=== PATIENT | female | born 1975 | race Caucasian/White ===

== ENCOUNTER → 2017-07-02 | Outpatient (CLI) | payer OTHER ==
--- NOTE | 2017-07-02 22:34 | MR ---
EXAMINATION TYPE: MR brain wo con DATE OF EXAM: 07/02/2017 COMPARISON: CT brain March 22, 2016 HISTORY: Previous stroke 2016 as well as right-sided hearing loss and right-sided weakness and numbne ss with inconclusive spinal tap for multiple sclerosis all per patient. Unspecified TIA per order. TECHNIQUE: Multiplanar, multisequence images of the brain and brainstem is performed without IV contrast. [facility] linating disease protocol with additional Sagittal Flair sequence performed. FINDINGS: T2 Lesions Present : No Approximate Number of Lesions: N/A Locations Identified : N/A Size of Reference Lesion(s): N/A T1 Hypointense Lesion(s) Present: N/A Change from Prior: N/A Diffusion weighted images demonstrate no evidence of a recent infarct or other diffusion abnormality. There is no worrisome extra-axial fluid collection. The ventricular system and cisternal spaces ar e normal in size and appearance. The brain volume is age appropriate. Midline structures demonstrate normal morphology. The craniocervical junction appears within normal limits. Normal vascular flow voids are present. The visualized sinuses are clear and the globes are intact. IMPRESSION: No evidence of a recent infarct. Unremarkable study.
== END | disposition home or self-care (01) ==
LOC: RADMRIMAIN 20:48
PROVIDERS: ATTEND Psychiatry & Neurology Neurology
DX: G45.9 Transient cerebral ischemic attack, unspecified (principal); Z88.1 Allergy status to other antibiotic agents; Z91.040 Latex allergy status
CPT/HCPCS: 70551

== ENCOUNTER 2023-07-21 13:33 | Emergency (ER) | payer OTHER ==
[2023-07-21] MEDS: HYDROmorphone 1 MG/ML 1 ML SYRINGE IVP STA (13:55)
--- NOTE | 2023-07-21 13:58 | ED ---
General Adult HPI <CyrusNelda P - Last Filed: 07/21/23 19:52> - General Source: patient, RN notes reviewed Mode of arrival: wheelchair Limitations: no limitations <Karin Banks - Last Filed: 07/21/23 20:24> - General Chief complaint: Extremity Injury, Lower Stated complaint: L ankle injury Time Seen by Provider: 07/21/23 13:41 - History of Present Illness Initial comments: 48-year-old female presents to the emergency department for evaluation of left ankle injury. Patient states that she was wearing high-heeled boots on Saturday when she twisted her ankle. She states that she has not been able to walk on it. She tried to wait to see if it would get better on its own. She has been taking Motrin for the pain. She used crutches to get around today. (Karin Banks) - Related Data Home Medications Medication Instructions Recorded Confirmed Albuterol Inhaler [Ventolin 1 - 2 puff INHALATION RT-Q6H PRN 10/26/14 03/22/16 Inhaler] DULoxetine HCL [Cymbalta] 120 mg PO HS 10/26/14 03/22/16 Lurasidone [Latuda] 20 mg PO HS 10/26/14 03/22/16 Denosumab [Prolia] 60 mg SQ Q180D 08/30/15 03/22/16 Gabapentin [Gralise] 1,800 mg PO HS 08/30/15 03/22/16 Multivitamins, Thera [Multivitamin] 1 tab PO HS 08/30/15 03/22/16 ALPRAZolam [Xanax] 0.25 mg PO BID PRN 03/22/16 03/22/16 Atorvastatin [Lipitor] 40 mg PO HS 03/22/16 03/22/16 Clopidogrel [Plavix] 75 mg PO HS 03/22/16 03/22/16 HYDROcodone/APAP 7.5-325MG [[place] 1 tab PO BID PRN 03/22/16 03/22/16 7.5-325] Levothyroxine Sodium [Levoxyl] 75 mcg PO DAILY 03/22/16 03/22/16 Zonisamide [Zonegran] 200 mg PO HS 03/22/16 03/22/16 Previous Rx's Medication Instructions Recorded HYDROcodone/APAP 5-325MG [[place] 1 tab PO Q4HR PRN 3 Days #18 tab 07/21/23 5-325] Allergies Allergy/AdvReac Type Severity Reaction Status Date / Time cephalexin monohydrate Allergy Rash/Hives Verified 07/21/23 13:37 [From Keflex] latex Allergy Rash/Hives Verified 07/21/23 13:37 shellfish derived [Shellfish] Allergy Anaphylaxis Verified 07/21/23 13:37 tree nut Allergy Anaphylaxis Verified 07/21/23 13:37 Review of Systems ROS Other: All systems not noted in ROS Statement are negative. <Nelda Bridges - Last Filed: 07/21/23 19:52> ROS Other: All systems not noted in ROS Statement are negative. <Karin Banks - Last Filed: 07/21/23 20:24> ROS Statement: Those systems with pertinent positive or pertinent negative responses have been documented in the HPI. Past Medical History Past Medical History: Thyroid Disorder Additional Past Medical History / Comment(s): Hx. fibromyalgia/ hasimoto/osteoporosis/raynauds/crest/scleroderma/trigeminal neuralgia/occipital neuritis/bipolar depression/ vit b-12 deficiend and vit d dedf/spinal stenosis/ History of Any Multi-Drug Resistant Organisms: None Reported Past Surgical History: Orthopedic Surgery Additional Past Surgical History / Comment(s): fx to face surgically fixed/dilaltion and curettage/left neck lymph node bx-negtive and leep Past Anesthesia/Blood Transfusion Reactions: No Reported Reaction Past Psychological History: Anxiety, Bipolar Smoking Status: Never smoker Past Alcohol Use History: None Reported Past Drug Use History: Marijuana - Past Family History Father Family Medical History: Diabetes Mellitus, Hyperlipidemia, Hypertension Mother Additional Family Medical History / Comment(s): osteopenia Sister(s) Family Medical History: Thyroid Disorder Additional Family Medical History / Comment(s): lupus and Brother(s) Additional Family Medical History / Comment(s): depression <Karin Banks - Last Filed: 07/21/23 20:24> General Exam Limitations: no limitations General appearance: alert, in no apparent distress Head exam: Present: atraumatic, normocephalic, normal inspection Eye exam: Present: normal appearance, PERRL, EOMI. Absent: scleral icterus, conjunctival injection, periorbital swelling ENT exam: Present: normal exam, mucous membranes moist Respiratory exam: Present: normal lung sounds bilaterally. Absent: respiratory distress, wheezes, rales, rhonchi, stridor Cardiovascular Exam: Present: regular rate, normal rhythm, normal heart sounds. Absent: systolic murmur, diastolic murmur, rubs, gallop, clicks Extremities exam: Present: tenderness, normal capillary refill, pedal edema, other (DP and PT pulses 2+ ecchymosis to the medial left foot and ankle, deformity of the left ankle, normal cap refill). Absent: full ROM Neurological exam: Present: alert, oriented X3 Psychiatric exam: Present: normal affect, normal mood Skin exam: Present: warm, dry, intact, other (Ecchymosis to the left foot and ankle with significant edema, DP and PT pulses 2+). Absent: normal color <Karin Banks - Last Filed: 07/21/23 20:24> Course Vital Signs 07/21/23 07/21/23 07/21/23 13:35 15:48 16:55 Temperature 98 F Pulse Rate 97 72 68 Respiratory 20 18 18 Rate Blood Pressure 143/84 144/85 131/81 O2 Sat by Pulse 99 98 100 Oximetry 07/21/23 07/21/23 07/21/23 17:00 17:05 17:20 Temperature Pulse Rate 67 65 78 Respiratory 18 18 18 Rate Blood Pressure 102/60 110/62 125/73 O2 Sat by Pulse 99 99 99 Oximetry 07/21/23 07/21/23 07/21/23 17:35 17:50 18:05 Temperature Pulse Rate 72 63 74 Respiratory 18 18 18 Rate Blood Pressure 134/82 130/79 130/74 O2 Sat by Pulse 97 99 98 Oximetry 07/21/23 07/21/23 07/21/23 18:35 19:05 19:11 Temperature Pulse Rate 72 75 71 Respiratory 18 18 18 Rate Blood Pressure 134/84 128/84 131/72 O2 Sat by Pulse 97 97 95 Oximetry 07/21/23 19:35 Temperature Pulse Rate 56 L Respiratory 14 Rate Blood Pressure 124/71 O2 Sat by Pulse 99 Oximetry Procedures - Procedural Sedation *Procedural Sedation Start Time: 16:55 *Procedural Sedation Stop Time: 17:20 *Risks,benefits, and alternative therapies discussed?: Yes *Patient indicates understanding of risk/benefit discussion?: Yes *Indications: fracture/dislocation reduction *Previous Adverse Reaction to Anesthesia/Sedation?: Yes *ASA Class: II *Mallampati Airway Score: 1 Preparation: assisted living assistant applied, pulse oximeter, capnometry used, supplemental O2 applied, suction/airway equipment at bedside, IV secured IV Propofol Dose (mgs): 120 Complications: none Patient Tolerated Procedure: well, no complications <Nelda Bridges P - Last Filed: 07/21/23 19:52> - Orthopedic Fracture Reduction Fracture #1 Consent Obtained: verbal consent, written consent Side: left Fracture Reduction Location: tibia, fibula Analgesia: procedural sedation Technique: direct manipulation Post Reduction X-rays Demonstrate: acceptable reduction Post-Reduction Neuro Exam: intact Post-Reduction Vascular Exam: intact Splint Applied: Yes Patient Tolerated Procedure: well - Orthopedic Splinting/Casting Injury #1 Side: left Lower Extremity Injury Location: long leg Lower Extremity Immobilizer: posterior splint Other Orthopedic Equipment: crutches <Karin Banks - Last Filed: 07/21/23 20:24> Medical Decision Making - Lab Data Result diagrams: 07/21/23 14:03 07/21/23 14:03 <Nelda Bridges P - Last Filed: 07/21/23 19:52> - Lab Data Result diagrams: 07/21/23 14:03 07/21/23 14:03 <Karin Banks - Last Filed: 07/21/23 20:24> - Medical Decision Making Was pt. sent in by a medical professional or institution (Dr. PA, BUSINESS INFO CONSULTANT, urgent care, hospital, or residential...) When possible be specific @ -No Did you speak to anyone other than the patient for history (EMS, parent, family, police, friend...)? What history was obtained from this source @ -No Did you review nursing and triage notes (agree or disagree)? Why? @ -I reviewed and agree with nursing and triage notes Were old charts reviewed (outside hosp., previous admission, EMS record, old EKG, old radiological studies, urgent care reports/EKG's, residential records)? Report findings @ -No old charts were reviewed Differential Diagnosis (chest pain, altered mental status, abdominal pain women, abdominal pain men, vaginal bleeding, weakness, fever, dyspnea, syncope, headache, dizziness, GI bleed, back pain, seizure, CVA, palpatations, mental health, musculoskeletal)? @ -Differential Musculoskeletal Muscular strain, contusion, ligament sprain, fracture, arthritis, septic arthritis, bursitis, cellulitis, muscle spasm, nerve compression, DVT, arterial occlusion, herpes zoster, electrolyte abnormality, tumor.... This is not meant to be in all inclusive list EKG interpreted by me (3pts min.). @ -None X-rays interpreted by me (1pt min.). @ -X-ray of the left ankle was obtained Fracture of the lateral malleolus and posterior tibial plafond with posterior displacement of the ankle and fibula Postreduction x-rays show improved alignment of trimalleolar fracture fragments CT interpreted by me (1pt min.). @ -CT of the left ankle was obtained which shows Trimalleolar fracture with mild displacement of the fragments, suspicion for syndesmotic injury U/S interpreted by me (1pt. min.). @ -None done What testing was considered but not performed or refused? (CT, X-rays, U/S, labs)? Why? @ -None What meds were considered but not given or refused? Why? @ -None Did you discuss the management of the patient with other professionals (professionals i.e. , PA, BUSINESS INFO CONSULTANT, lab, RT, psych nurse, licensed clinical social worker, support worker, teacher, purchasing officer, showcase trimmer)? Give summary @ -Dr. Bridges discussed the case with Dr. Pagan, patient will follow-up with him in the office Was smoking cessation discussed for >3mins.? @ -No Was critical care preformed (if so, how long)? @ -No Were there social determinants of health that impacted care today? How? (Homelessness, low income, unemployed, alcoholism, drug addiction, transportation, low edu. Level, literacy, decrease access to med. care, skilled nursing, rehab)? @ -No Was there de-escalation of care discussed even if they declined (Discuss DNR or withdrawal of care, Hospice)? DNR status @ -No What co-morbidities impacted this encounter? (DM, HTN, Smoking, COPD, CAD, Cancer, CVA, ARF, Chemo, Hep., AIDS, mental health diagnosis, sleep apnea, morbid obesity)? @ -None Was patient admitted / discharged? Hospital course, mention meds given and route, prescriptions, significant lab abnormalities, going to OR and other pertinent info. @ -Discharged. Patient presented to the emergency department for evaluation of the left ankle injury. She states that this occurred on Saturday. She was wearing high heels when she twisted her ankle. She states that she has not been able to bear weight on it. She has been utilizing crutches at home. X-rays obtained which show fracture of the lateral malleolus and posterior tibial plafond with posterior displacement. Neurovascularly intact. Patient underwent procedural sedation and reduction preformed by Dr. Bridges. Patient placed in posterior long-leg splint. Neurovascularly intact postreduction. See procedure notes for further details. Dr. Bridges discussed the case with Dr. Pagan who is requesting a CT of the ankle. CT obtained which shows a trimalleolar fracture with mild displacement. Patient will follow-up with him in the office. Patient provided nausea medications in the emergency department. Also given starter pack for Tylenol 3 and Zofran. Prescription written for 3 days worth of [place]. Patient will call Dr. Pagan's office tomorrow. Understanding and agreeable with discharge plan. Stable at time of discharge. Undiagnosed new problem with uncertain prognosis? @ -No Drug Therapy requiring intensive monitoring for toxicity (Heparin, Nitro, Insulin, Cardizem)? @ -No Were any procedures done? @ -Yes procedural sedation, fracture reduction, splinting Diagnosis/symptom? @ -Left ankle trimalleolar fracture Acute, or Chronic, or Acute on Chronic? @ -Acute Uncomplicated (without systemic symptoms) or Complicated (systemic symptoms)? @ -Uncomplicated Side effects of treatment? @ -No Exacerbation, Progression, or Severe Exacerbation? @ -No Poses a threat to life or bodily function? How? (Chest pain, USA, NC, pneumonia, PE, COPD, DKA, ARF, appy, cholecystitis, CVA, Diverticulitis, Homicidal, Suicidal, threat to staff... and all critical care pts) @ -No (Karin Banks) - Lab Data Lab Results 07/21/23 07/21/23 07/21/23 Range/Units 14:03 14:03 14:03 WBC 7.6 (3.8-10.6) k/uL RBC 3.90 (3.80-5.40) m/uL Hgb 12.2 (11.4-16.0) gm/dL Hct 35.5 (34.0-46.0) % MCV 91.1 (80.0-100.0) fL MCH 31.2 (25.0-35.0) pg MCHC 34.3 (31.0-37.0) g/dL RDW 12.5 (11.5-15.5) % Plt Count 292 (150-450) k/uL MPV 8.9 Neutrophils % 76 % Lymphocytes % 17 % Monocytes % 4 % Eosinophils % 2 % Basophils % 0 % Neutrophils # 5.7 (1.3-7.7) k/uL Lymphocytes # 1.3 (1.0-4.8) k/uL Monocytes # 0.3 (0-1.0) k/uL Eosinophils # 0.1 (0-0.7) k/uL Basophils # 0.0 (0-0.2) k/uL PT 10.0 (10.0-12.5) sec INR 0.9 (<1.2) APTT 20.4 L (22.0-30.0) sec Sodium 135 L (137-145) mmol/L Potassium 3.9 (3.5-5.1) mmol/L Chloride 109 H (98-107) mmol/L Carbon Dioxide 18 L (22-30) mmol/L Anion Gap 8 mmol/L BUN 11 (7-17) mg/dL Creatinine 0.86 (0.52-1.04) mg/dL Est GFR (CKD-EPI)AfAm >90 (>60 ml/min/1.73 sqM) Est GFR (CKD-EPI)NonAf 81 (>60 ml/min/1.73 sqM) Glucose 97 (74-99) mg/dL Calcium 9.3 (8.4-10.2) mg/dL Total Bilirubin 0.8 (0.2-1.3) mg/dL AST 24 (14-36) U/L ALT 15 (4-34) U/L Alkaline Phosphatase 63 (38-126) U/L Total Protein 7.0 (6.3-8.2) g/dL Albumin 4.2 (3.5-5.0) g/dL Disposition Is patient prescribed a controlled substance at d/c from ED?: No <Nelda Bridges - Last Filed: 07/21/23 19:52> Is patient prescribed a controlled substance at d/c from ED?: Yes When asked, does pt state using other controlled substances?: No If prescribed controlled substance>3 days was MAPS reviewed?: Prescribed <3 Days <Karin Banks - Last Filed: 07/21/23 20:24> Clinical Impression: Trimalleolar fracture of ankle, closed Disposition: HOME SELF-CARE Condition: Stable Instructions (If sedation given, give patient instructions): Ankle Fracture (ED) Additional Instructions: Please follow up with orthopedics. Return to the emergency department for new or worsening symptoms. Prescriptions: HYDROcodone/APAP 5-325MG [[place] 5-325] 1 tab PO Q4HR PRN 3 Days #18 tab PRN Reason: Pain Referrals: None,Stated [Primary Care Provider] - 1-2 days Harman Pagan MD [Medical Doctor] - 1-2 days
[2023-07-21 14:00] VITALS: TEMP 98
[2023-07-21] MEDS: HYDROmorphone 1 MG/ML 1 ML SYRINGE IM STA (14:02)
[2023-07-21 14:19] LABS: Basophils % (A) 0 %; Eosinophils # (A) 0.1 k/uL (0-0.7); Eosinophils % (A) 2 %; HCT 35.5 % (34.0-46.0); HGB 12.2 gm/dL (11.4-16.0); Lymphocytes # (A) 1.3 k/uL (1.0-4.8); Lymphocytes % (A) 17 %; MCH 31.2 pg (25.0-35.0); MCHC 34.3 g/dL (31.0-37.0); MCV 91.1 fL (80.0-100.0); Mean Platelet Volume 8.9; Monocytes # (A) 0.3 k/uL (0-1.0); Monocytes % (A) 4 %; Neutrophils # (A) 5.7 k/uL (1.3-7.7); Neutrophils % (A) 76 %; Platelet Count 292 k/uL (150-450); RDW 12.5 % (11.5-15.5); WBC 7.6 k/uL (3.8-10.6)
--- NOTE | 2023-07-21 14:27 | XR ---
EXAMINATION TYPE: XR ankle limited LT DATE OF EXAM: 07/21/2023 2:04 PM CLINICAL INDICATION:Female, 48 years old with history of twisting injury; [facility] COMPARISON: None TECHNIQUE: XR ankle limited LT; ankle is imaged in frontal, lateral and oblique projections. FINDINGS/IMPRESSION: Fracture dislocation of the ankle with fractures at the lateral malleolus and posterior tibial plafon d. There is posterior displacement of the ankle and posterior displacement of the fibula. Mild shorte davonte of the fibular fracture. There is shortening present.
[2023-07-21 14:30] LABS: ALT 15 U/L (4-34); AST 24 U/L (14-36); African American GFR (CKD) >90 (>60 ml/min/1.73 sqM); Albumin 4.2 g/dL (3.5-5.0); Alkaline Phosphatase 63 U/L (38-126); Anion Gap 8 mmol/L; Blood Urea Nitrogen 11 mg/dL (7-17); Calcium 9.3 mg/dL (8.4-10.2); Carbon Dioxide 18 mmol/L (22-30); Chloride 109 mmol/L (98-107); Glucose 97 mg/dL (74-99); Non-African American GFR(CKD) 81 (>60 ml/min/1.73 sqM); Potassium 3.9 mmol/L (3.5-5.1); Sodium 135 mmol/L (137-145); Total Bilirubin 0.8 mg/dL (0.2-1.3)
[2023-07-21 14:39] LABS: INR 0.9 (<1.2)
[2023-07-21 15:17] LABS: Partial Thromboplastin Time 20.4 sec (22.0-30.0)
[2023-07-21] MEDS: HYDROmorphone 0.5 MG/0.5 ML SYRINGE IVP STA ×2 (16:14→18:05)
[2023-07-21] MEDS: ONDANSETRON 4 MG/2 ML VIAL IVP STA ×2 (16:17→18:28)
[2023-07-21] MEDS: PROPOFOL 10 MG/ML 20 ML VIAL IV ONE (16:55)
--- NOTE | 2023-07-21 17:55 | XR ---
EXAMINATION TYPE: XR ankle limited LT DATE OF EXAM: 07/21/2023 5:21 PM CLINICAL INDICATION:Female, 48 years old with history of post reduction; COMPARISON: Same day TECHNIQUE: XR ankle limited LT; ankle is imaged in frontal, lateral and oblique projections. FINDINGS/IMPRESSION: Improved alignment of the trimalleolar fracture fragments: The medial lateral and posterior tibia. No new fractures visualized.
[2023-07-21] MEDS: ACET/COD 300 MG/30 MG STARTER PACK 6 TAB BTL PO STA (18:06)
[2023-07-21] MEDS: ONDANSETRON 4 MG ODT STARTER PACK 2 TAB BTL PO STA (19:10)
[2023-07-21] MEDS: SODIUM CHLORIDE 0.9% 500 ML 500 ML IV ONE (19:25)
[2023-07-21] MEDS: METOCLOPRAMIDE 5 MG/ML 2 ML VIAL IVP STA (19:25)
--- NOTE | 2023-07-21 19:45 | CT ---
EXAMINATION TYPE: CT ankle LT wo con CT DLP: 73 mGycm, Automated exposure control for dose reduction was used. DATE OF EXAM: 07/21/2023 6:48 PM COMPARISON: Extremity radiograph same day. CLINICAL INDICATION:Female, 48 years old with history of fracture; [facility], presurgical planning. TECHNIQUE: Axial images were obtained of the CT ankle LT wo con, Additional coronal and sagittal refo rmatted images and soft tissue and bone window were obtained for review. 3-D reconstruction was creat ed on a separate workstation. Contrast used: mL of , (None if empty) Oral contrast used: (None if empty) FINDINGS: Trimalleolar fracture with medial malleolus displaced to the lateral aspect 5 millimeters. The talus is shifted off the medial malleolus approximately 8 mm laterally. The distal fibula demonst rates comminution with at least 5 mm lateral displacement. The posterior tibial plafond fracture has mild shortening of 3 mm. Few bony fragments are seen within the joint space series 203 image 30 at th e tibial plafond fracture site. Soft tissue edema seen throughout the lower extremity. IMPRESSION: Trimalleolar fracture with mild displacement of fragments. There is findings suspicious for syndesmot ic injury. The heart and intra-articular calcific bodies most pronounced in the posterior tibial plaf ond fracture.
[2023-07-21 20:33] VITALS: BP 132/73; PULSE 83; RESP 16
== END 2023-07-21 20:23 | disposition home or self-care (01) ==
LOC: EC 13:33
DX: S82.852A Displaced trimalleolar fracture of left lower leg, initial encounter for closed fracture (principal); E07.9 Disorder of thyroid, unspecified; F31.9 Bipolar disorder, unspecified; F41.9 Anxiety disorder, unspecified; F12.90 Cannabis use, unspecified, uncomplicated; Z79.890 Hormone replacement therapy; Z79.899 Other long term (current) drug therapy; Z88.1 Allergy status to other antibiotic agents; Z91.040 Latex allergy status; Z91.013 Allergy to seafood; Z91.018 Allergy to other foods; X50.1XXA Overexertion from prolonged static or awkward postures, initial encounter
CPT/HCPCS: 36415; 80053; 85025; 85610; 85730; 73600; 73700; 27818; 99152; 99153; 99284; 96374; 96375 ×2; 96376 ×2; 96361; 96372; J2765; J2405; J1170 ×2; S0119; J2704

== ENCOUNTER 2023-07-26 10:54 | Day surgery (SDC) | payer SELFPAY ==
[2023-07-23 13:14] VITALS: BMI 24.1
[~2023-07-26 10:54] MED LIST: MIDAZOLAM 2 MG/2 ML VIAL IV PRN; SCOPOLAMINE 1 MG/72 HR PATCH TRANSDERM ONE
[2023-07-26] MEDS: DEXAMETHASONE SOD PHOSPHATE 4 MG/ML 1 ML VIAL IV ONE (12:13)
[2023-07-26] MEDS: ONDANSETRON 4 MG/2 ML VIAL IVP ONE ×2 (12:13→15:58)
[2023-07-26] MEDS: LACTATED RINGERS 1,000 ML IV SCH (12:13)
[2023-07-26] MEDS: MIDAZOLAM 2 MG/2 ML VIAL IVP ONE (12:37)
[2023-07-26] MEDS: fentaNYL (PF) 50 MCG/ML 2 ML AMP IVP ONE (12:37)
[2023-07-26] MEDS ORDERED: LIDOCAINE 1% INJ 10MG/ML (20 ML MDV) ONE (13:23)
[2023-07-26] MEDS ORDERED: ROPIVACAINE 5 MG/ML 30 ML VIAL ONE (13:23)
[2023-07-26] MEDS ORDERED: fentaNYL (PF) 50 MCG/ML 2 ML AMP ONE (13:23)
[2023-07-26] MEDS ORDERED: PROPOFOL 10 MG/ML 20 ML VIAL IV ONE (13:23)
[2023-07-26] MEDS ORDERED: HYDROmorphone (PF) 1 MG/ML ONE (13:23)
[2023-07-26] MEDS ORDERED: SODIUM CHLORIDE 0.9% (PF) 10 ML VIAL ONE (13:23)
[2023-07-26] MEDS ORDERED: MIDAZOLAM 2 MG/2 ML VIAL ONE (13:23)
[2023-07-26] MEDS: LACTATED RINGERS 1,000 ML IV ONE ×2 (14:38→16:51)
[2023-07-26] MEDS: HYDROmorphone 0.5 MG/0.5 ML SYRINGE IVP ONE (15:36)
--- NOTE | 2023-07-26 15:37 | P.ANPRN ---
Procedure Note - Anesthesia - Nerve Block Performed Left Popliteal Single Time Out Performed: Yes (1236) Date of Procedure: 07/26/23 Procedure Start Time: 12:37 Procedure Stop Time: 12:40 Location of Patient: PreOp Indication: Acute Post-Operative Pain, Requested by Surgeon Specifically requested for management of pain by DrViolet: Low Avila Sedation Type: Sedate with meaningful contact maintained Preparation: Sterile Prep Position: Right Lateral Catheter: None Needle Types: Pajunk Needle Gauge: 21 Ultrasound used to visualize needle placement: Yes Ultrasound used to observe medication spread: Yes Injectate: 0.5% Ropivacaine (see comment for volume) (15cc + 10cc nacl pf) Blood Aspirated: No Pain Paresthesia on Injection Noted: No Resistance on Injection: Normal Image Stored and Saved: Yes Events: Uneventful and Well Tolerated
--- NOTE | 2023-07-26 15:38 | P.ANPRN ---
Procedure Note - Anesthesia - Nerve Block Performed Left Adductor Canal Single Time Out Performed: Yes (1236) Date of Procedure: 07/26/23 Procedure Start Time: 12:41 Procedure Stop Time: 12:43 Location of Patient: PreOp Indication: Acute Post-Operative Pain, Requested by Surgeon Specifically requested for management of pain by DrViolet: Low Avila Sedation Type: Sedate with meaningful contact maintained Preparation: Sterile Prep Position: Supine Catheter: None Needle Types: Pajunk Needle Gauge: 21 Ultrasound used to visualize needle placement: Yes Ultrasound used to observe medication spread: Yes Injectate: 0.5% Ropivacaine (see comment for volume) (15cc + 10cc nacl pf) Blood Aspirated: No Pain Paresthesia on Injection Noted: No Resistance on Injection: Normal Image Stored and Saved: Yes Events: Uneventful and Well Tolerated
[2023-07-26 15:44] VITALS: TEMP 97
[2023-07-26] MEDS: HYDROmorphone 0.5 MG/0.5 ML SYRINGE IVP PRN (15:58)
--- NOTE | 2023-07-26 16:30 | FL ---
EXAMINATION TYPE: FL guidance operating room, XR ankle complete LT Intraoperative/procedural fluorosc opic services were provided. Total fluoroscopy time is 2.24 min with a total of 4 submitted images to PACS. Please see the operative/procedural note for further details. DAP: 1.5639 Gycm2
[2023-07-26 18:35] VITALS: RESP 16
[2023-07-26 19:02] VITALS: BP 140/76; PULSE 76
--- NOTE | 2023-08-09 07:00 | P.OP ---
Date of Procedure: 07/26/23 Preoperative Diagnosis: Displaced left trimalleolar ankle fracture Postoperative Diagnosis: Same Procedure(s) Performed: Open reduction with internal fixation left trimalleolar ankle fracture Implants: Joy precontoured lateral malleolar plate, [place] medial malleolar hook plate Anesthesia: ISIDRA Surgeon: Low Avila IV fluids (ml): 20 Pathology: none sent Condition: stable Disposition: PACU Description of Procedure: Prior to the patient being brought to the operative room, anesthesia administered a nerve block on the affected lower extremity. The patient was brought into the operative room placed on table supine position. Timeout was taken to confirm correct patient identifiers, correct laterally surgery, and correct procedure. Once all staff in the room were in agreement timeout, the patient was induced and placed under general anesthesia. A well-padded tourniquet was placed on the thigh the surgical leg and a bump underneath the hip to internally rotate the left leg. The left leg was then prepped and draped in usual manner. The leg was exsanguinated, the knee flexed, and the tourniquet inflated to 250 mmHg. Attention was first directed over the lateral malleolus where a linear incision was made down the midline. It was deepened down to the saphenous tissue careful to identify, avoid, and retract any neurovascular structures and cauterize any bleeding vessels. The incision was carried down to the periosteum which was then reflected in a full flap off of the lateral malleolus. The fracture was identified and distracted and all interposing hematoma and soft tissue was removed. Also of note, there was a large anterior fracture fragment from the lateral malleolus representing the insertion point of the anterior inferior tibial-fibular ligament. The main fracture fragment of the lateral malleolus was reduced and clamped in place. Fluoroscopic imaging confirmed anatomic alignment of the fracture. A cortical leg screw was then placed across the fracture for compression. A precontoured lateral malleolar plate was then positioned over the lateral malleolus and adjusted under fluoroscopy until properly positioned. The plate was temporarily fixated and then 3.5 mm locking screws were placed proximal to the fracture, locking screws were placed distally through the lateral malleolus. All distal screws were done directly under fluoroscopic visualization so as not to enter the ankle joint with the drill or screws. Once completed fluoroscopy showed that the fracture was back out to proper length and alignment was anatomic. The large anterior fragment was able to be manually reduced to its origin point. A small fragment plate was then placed anterior to the lateral malleolus to essentially hold the fracture in place. 2 screws were placed through the plate on either side of the fracture. Fluoroscopic imaging showed reduction of the fracture and proper placement of plate and screws. The wound is then thoroughly irrigated with anatomic saline. Deep closure done with 2-0 Vicryl. Subcu closure done for Monocryl. Skin closure done with blaze. Then attention was directed to the medial side for the medial malleolar fracture. The fracture was able to be reduced manually under fluoroscopic visualization. A guidewire for a 4.0 mm cannulated screw was used to capture the distal fragment into the tibia. Once the screw was inserted however, the head went through the distal fragment into the fracture line. At that time of the decision was made open the area. The incision was made over the fracture line. It was deepened under the subcutaneous tissue careful to identify, avoid, and retract any neurovascular structures and cauterize any bleeding vessels. Blunt dissection was carried down to level the fracture. The fracture was identified in the hematoma and soft tissue removed. It was noted that there was multiple fragments of the medial malleolar fracture, which is why the screw did not purchase. The decision was made to place a hook plate to capture the fragment and compressive into its anatomic alignment. The hook plate was positioned at the distal point of the fracture and then the hooks were set. The plate was adjusted under fluoroscopy until properly aligned. Across the also confirmed that the fracture was anatomically reduced. One locking and one nonlocking screw were placed through the proximal part of of the plate to contour to the tibia. The slot for the cortical screw was then the compression slot which allowed compression across the fracture. Fluoroscopic imaging showed maintained alignment of the fracture and proper placement of hardware. That wound is thoroughly irrigated with antibiotic saline. Deep closure done with 2- 0 Vicryl. Subcu closure done for Monocryl. And skin closure done with blaze. Then attention was directed to the anterior aspect of the ankle for the fixation of the posterior malleolar fragment. A guidewire for 4.0 mm cannulated screw was percutaneous placed through the skin on the anterior surface of the t ibia. Fluoroscopy was used to alignment so that it captured the posterior fragment. Ej confirmed the proper place a wire on the AP and lateral views. Drilling was performed all over the wire to the fracture line. Then the screw was inserted over the wire and advanced until the head contacted the cortex of the tibia and provided compression across the fracture. Fluoroscopic imaging showed proper placement of the screw as well as maintain alignment of the fracture. That wound is also irrigated and closed with blaze. Nonadherent gauze placed over all incisions and then a bulky dry dressing applied left ankle. The tourniquet was released and capillary refill return to all digits on the left foot. The patient was placed in a well-padded, well molded plaster posterior mold/sugar tong splint. Ankle was held in neutral position until the splint was dried. Anesthesia was then reversed and the patient was taken recovery with vital signs stable.
== END 2023-07-26 19:19 | disposition home or self-care (01) ==
LOC: OR 10:54
PROVIDERS: ATTEND Podiatrist
DX: S82.852B Displaced trimalleolar fracture of left lower leg, initial encounter for open fracture type I or II (principal); X58.XXXA Exposure to other specified factors, initial encounter
CPT/HCPCS: 64447; 81025; 64445; 84703; 73610; 27822; C1713; J2250; J1100; J0690; J2405; J2001; J3010; J1170 ×2; J2795; J2704

== ENCOUNTER 2024-02-28 07:26 | Day surgery (SDC) | payer OTHER ==
[2024-02-21 14:03] VITALS: BMI 23.6
[~2024-02-28 07:26] MED LIST changes: +LIDOCAINE 1% (10MG/ML) FOR IV START INTRADERMA PRN; -MIDAZOLAM 2 MG/2 ML VIAL IV PRN; -SCOPOLAMINE 1 MG/72 HR PATCH TRANSDERM ONE; +droPERidol 5 MG/2 ML VIAL IVP ONE
[2024-02-28] MEDS: IV FLUID CONTINUATION 1,000 ML IV ONE (07:57)
[2024-02-28] MEDS: LACTATED RINGERS 1,000 ML IV SCH (08:20)
[2024-02-28] MEDS: DEXAMETHASONE SOD PHOSPHATE 4 MG/ML 1 ML VIAL IV ONE (08:21)
[2024-02-28] MEDS: ONDANSETRON 4 MG/2 ML VIAL IVP ONE (08:21)
[2024-02-28] MEDS ORDERED: SUCCINYLCHOLINE CHLORIDE 200 MG/10 ML VIAL IV ONE (08:52)
[2024-02-28] MEDS ORDERED: PHENYLEPHRINE 10 MG/ML VIAL ONE (08:52)
[2024-02-28] MEDS ORDERED: fentaNYL (PF) 50 MCG/ML 2 ML AMP ONE (08:52)
[2024-02-28] MEDS ORDERED: PROPOFOL 10 MG/ML 20 ML VIAL IV ONE (08:52)
[2024-02-28] MEDS ORDERED: MIDAZOLAM 2 MG/2 ML VIAL ONE (08:52)
[2024-02-28] MEDS ORDERED: LIDOCAINE 1% INJ 10MG/ML (20 ML MDV) ONE (08:52)
[2024-02-28] MEDS: ceFAZolin 1,000 MG in SODIUM CHLORIDE 0.9% 1,000 ML IRRIGATION ONE (08:57)
[2024-02-28] MEDS: BUPIVACAINE (PF) 0.25% 30 ML VIAL SQ ONE (09:36)
[2024-02-28] MEDS: LACTATED RINGERS 1,000 ML IV ONE (09:48)
[2024-02-28] MEDS: HYDROmorphone 0.5 MG/0.5 ML SYRINGE IVP PRN (10:09)
--- NOTE | 2024-02-28 10:14 | P.OP ---
Date of Procedure: 02/28/24 Preoperative Diagnosis: painful retained hardware left ankle Postoperative Diagnosis: same Procedure(s) Performed: removal of deep hardware left ankle Implants: none Anesthesia: ZEYADA Surgeon: Low Avila Estimated Blood Loss (ml): 5 Pathology: none sent Condition: stable Disposition: PACU Description of Procedure: The patient was brought into the operating room and placed on the table in the supine position. Timeout was taken to confirm correct patient identifiers, correct lateral malleolus surgery, and correct procedure. Once all staff in the room were in agreement with the timeout, the patient was induced and placed under general anesthesia. A well-padded tourniquet was placed on the left calf and a wedge underneath the hip to internally rotate the left leg. 20 mL 0.25% Marcaine was injected as a proximal ankle block. The left leg was prepped and draped usual manner. The left leg was exsanguinated and the tourniquet inflated to 250 mmHg. Attention was first directed to the lateral aspect of the ankle where the previous incision was used. The incision was deepened down to the deep tissue over the plate. The soft tissues reflected off the plate to expose all the screws. All screws were removed intact without complication. The plate was freed and removed. There is also small fragment plate on the anterior surface the lateral malleolus. The soft tissue was freed from the plate. All screws were engaged and removed intact without complication. The plate was freed and removed. any bony prominences were removed with a freer and smoothed with a rasp. 4 the wound is irrigated thoroughly with antibiotic saline. Deep c losure done with 2-0 Vicryl. Subcu closure was done with 4-0 Monocryl. And skin closure was done with 4-0 Stratafix in a running subarticular manner. then attention was directed over the medial side of the ankle where the previous incision was used. The incision was deepened down directly to the plate. The tissues reflected off the plate to expose the screws. All screws were removed intact and without complication. The plate was freed and removed. Any bony prominences were smoothed with a Aris and a rasp. The wound is irrigated thoroughly with antibiotic saline. Deep closure was done with 2-0 Vicryl. Skin closure was done with 4-0 Stratafix in a running subcuticular manner. Dermal glue was placed over both incisions allowed to dry. Steri-Strips are placed across incision. Nonadherent gauze and a dry sterile dressing applied to the ankle. The tourniquet was released and capillary refill return to all digits on the foot. The patient tolerated above procedure and anesthesia well. The patient left the operating room to recovery with vital signs stable.
[2024-02-28 10:20] VITALS: TEMP 97.8
[2024-02-28] MEDS: SCOPOLAMINE 1 MG/72 HR PATCH TRANSDERM ONE (10:49)
[2024-02-28 11:19] VITALS: RESP 16
[2024-02-28 11:46] VITALS: BP 106/58; PULSE 65
== END 2024-02-28 12:33 | disposition home or self-care (01) ==
LOC: OR 07:26
PROVIDERS: ATTEND Podiatrist
CPT/HCPCS: 81025